=== PATIENT | female | born 1980 | race African-American/Black ===

== ENCOUNTER 2016-07-16 14:18 | Emergency (ER) | payer MEDICAID ==
[~2016-07-16] VITALS: Ht 154.9 cm; Wt 50.0 kg
[~2016-07-16 14:18] MED LIST: PENI500T PO; TRAM50 PO
[2016-07-16 14:20] VITALS: BP 109/97; PULSE 95; RESP 12; TEMP 98.6; O2SAT 97
[2016-07-16] MEDS ORDERED: KETOROLAC TROMETHAMINE 30 MG/ML (IVP) VIAL IVP ONE (15:00)
[2016-07-16] MEDS ORDERED: SODIUM CHLOR 0.9% 1000 ML INJ 1,000 ML IV SCH (15:00)
[2016-07-16] MEDS ORDERED: SODIUM CHLORIDE 0.9% FLUSH 5 ML FLUSH IVF PRN (15:00)
--- NOTE | 2016-07-16 15:08 | PD ---
HPI Chief Complaint: Oral / Dental Pain or Problem Time Seen by Provider: 14:49 Travel History International Travel<30 days: No Contact w/Intl Traveler<30days: No Traveled to known affect area: No History of Present Illness HPI The patient is a 35-year-old Kristina female who presents to the emergency department for dental pain and abdominal pain. The patient notes a one-day history of right dental swelling and discomfort located in the right lower aspect of the mouth. She does note mild swelling and sensitivity over the affected area with previous infections. The patient states she is unable to see her dentist until next week. The patient also complains of right sided abdominal pain has been intermittent for the last week. The pain is located in the right lower aspect of her abdomen, worse after drinking "soda", and alleviating on its own. The patient denies any nausea, vomiting, diarrhea, or anorexia. The patient does have a history of previous sections, but denies any history of previous gallstones or pancreatitis. The patient denies any dysuria, frequency, or urgency. The patient's last menstrual cycle was June 20, 2016. The patient denies any unusual vaginal discharge, does note normal, thin white vaginal discharge without itching or smell. PFSH Past Medical History Medical History: Denies Significant Hx Diabetes: No Immune Disorder: No ?: Not : 3 Para: 3 Past Surgical History Section: Yes (x2) Social History Alcohol Use: No Tobacco Use: Yes Substance Use: No Allergies-Medications (Allergen,Severity, Reaction): Coded Allergies: No Known Allergies (Verified , 07/16/16) Reported Meds & Prescriptions Reported Meds & Active Scripts Active Pen Vk (Penicillin V Potassium) 500 Mg Tab 500 Mg PO QID Ultram (Tramadol HCl) 50 Mg Tab 50 Mg PO Q6H PRN FOR PAIN Review of Systems Except as stated in HPI: all other systems reviewed are Neg General / Constitutional: No: Fever HENT: Positive: Dental Difficulties Cardiovascular: No: Chest Pain or Discomfort Respiratory: No: Shortness of Breath Gastrointestinal: No: Nausea, Vomiting, Abdominal Pain Genitourinary: Positive: Discharge (normal thin white vaginal discharge per patient's report), No: Urgency, Frequency, Dysuria, Hematuria, Vaginal Bleeding Skin: No Rash Physical Exam Narrative GENERAL: Awake, alert, pleasant 35-year-old female who appears her stated age and is in no acute respiratory distress. SKIN: Warm and dry. HEAD: Atraumatic. Normocephalic. EYES: Pupils equal and round. No scleral icterus. No injection or drainage. ENT: No nasal bleeding or discharge. Poor dentition with multiple missing teeth. Mild swelling along the lateral aspect of the right lower gumline. NECK: Trachea midline. No JVD. CARDIOVASCULAR: Regular rate and rhythm. No murmur appreciated. RESPIRATORY: No accessory muscle use. Clear to auscultation. Breath sounds equal bilaterally. GASTROINTESTINAL: Abdomen soft, non-tender, nondistended. Negative Mo's. Negative McBurney's. No rebound tenderness, guarding, or rigidity. MUSCULOSKELETAL: No obvious deformities. No clubbing. No cyanosis. No edema. NEUROLOGICAL: Awake and alert. No obvious cranial nerve deficits. Motor grossly within normal limits. Normal speech. PSYCHIATRIC: Appropriate mood and affect; insight and judgment normal. Data Data Last Documented VS Vital Signs Date Time Temp Pulse Resp B/P Pulse Ox O2 Delivery O2 Flow Rate FiO2 07/16/16 15:21 100 Room Air 07/16/16 14:54 20 07/16/16 14:20 98.6 95 109/97 Orders Complete Blood Count With Diff (07/16/16 15:00) Comprehensive Metabolic Panel (07/16/16 15:00) Lipase (07/16/16 15:00) Urinalysis - C+S If Indicated (07/16/16 15:00) Iv Access Insert/Monitor (07/16/16 15:00) Ecg Monitoring (07/16/16 15:00) Oximetry (07/16/16 15:00) Sodium Chlor 0.9% 1000 Ml Inj (Ns 1000 M (07/16/16 15:00) Sodium Chloride 0.9% Flush (Ns Flush) (07/16/16 15:00) Ketorolac Inj (Toradol Inj) (07/16/16 15:00) Ed Urine Pregnancytest Poc (07/16/16 15:00) Labs Laboratory Tests Test 07/16/16 15:15 White Blood Count 7.8 TH/MM3 Red Blood Count 3.83 MIL/MM3 Hemoglobin 10.7 GM/DL Hematocrit 31.8 % Mean Corpuscular Volume 83.2 FL Mean Corpuscular Hemoglobin 28.0 PG Mean Corpuscular Hemoglobin 33.6 % Concent Red Cell Distribution Width 16.3 % Platelet Count 247 TH/MM3 Mean Platelet Volume 7.4 FL Neutrophils (%) (Auto) 54.0 % Lymphocytes (%) (Auto) 31.1 % Monocytes (%) (Auto) 11.3 % Eosinophils (%) (Auto) 2.8 % Basophils (%) (Auto) 0.8 % Neutrophils # (Auto) 4.2 TH/MM3 Lymphocytes # (Auto) 2.4 TH/MM3 Monocytes # (Auto) 0.9 TH/MM3 Eosinophils # (Auto) 0.2 TH/MM3 Basophils # (Auto) 0.1 TH/MM3 CBC Comment DIFF FINAL Differential Comment Urine Color YELLOW Urine Turbidity HAZY Urine pH 6.5 Urine Specific [place] 1.030 Urine Protein TRACE mg/dL Urine Glucose (UA) NEG mg/dL Urine Ketones NEG mg/dL Urine Occult Blood NEG Urine Nitrite NEG Urine Bilirubin NEG Urine Urobilinogen 2.0 MG/DL Urine Leukocyte Esterase MOD Urine RBC 1 /hpf Urine WBC 3 /hpf Urine Squamous Epithelial 23 /hpf Cells Urine Hyaline Casts 1 /lpf Urine Mucus MANY /lpf Microscopic Urinalysis Comment CULT NOT INDICATED Sodium Level 140 MEQ/L Potassium Level 3.5 MEQ/L Chloride Level 108 MEQ/L Carbon Dioxide Level 25.8 MEQ/L Anion Gap 6 MEQ/L Blood Urea Nitrogen 11 MG/DL Creatinine 0.83 MG/DL Estimat Glomerular Filtration 94 ML/MIN Rate Random Glucose 87 MG/DL Calcium Level 8.4 MG/DL Total Bilirubin 0.4 MG/DL Aspartate Amino Transf 8 U/L (AST/SGOT) Alanine Aminotransferase 13 U/L (ALT/SGPT) Alkaline Phosphatase 62 U/L Total Protein 7.6 GM/DL Albumin 3.9 GM/DL Lipase 509 U/L MDM Medical Decision Making Medical Screen Exam Complete: Yes Emergency Medical Condition: Yes Medical Record Reviewed: Yes Interpretation(s) Laboratory Tests Test 07/16/16 15:15 White Blood Count 7.8 TH/MM3 Red Blood Count 3.83 MIL/MM3 Hemoglobin 10.7 GM/DL Hematocrit 31.8 % Mean Corpuscular Volume 83.2 FL Mean Corpuscular Hemoglobin 28.0 PG Mean Corpuscular Hemoglobin 33.6 % Concent Red Cell Distribution Width 16.3 % Platelet Count 247 TH/MM3 Mean Platelet Volume 7.4 FL Neutrophils (%) (Auto) 54.0 % Lymphocytes (%) (Auto) 31.1 % Monocytes (%) (Auto) 11.3 % Eosinophils (%) (Auto) 2.8 % Basophils (%) (Auto) 0.8 % Neutrophils # (Auto) 4.2 TH/MM3 Lymphocytes # (Auto) 2.4 TH/MM3 Monocytes # (Auto) 0.9 TH/MM3 Eosinophils # (Auto) 0.2 TH/MM3 Basophils # (Auto) 0.1 TH/MM3 CBC Comment DIFF FINAL Differential Comment Urine Color YELLOW Urine Turbidity HAZY Urine pH 6.5 Urine Specific [place] 1.030 Urine Protein TRACE mg/dL Urine Glucose (UA) NEG mg/dL Urine Ketones NEG mg/dL Urine Occult Blood NEG Urine Nitrite NEG Urine Bilirubin NEG Urine Urobilinogen 2.0 MG/DL Urine Leukocyte Esterase MOD Urine RBC 1 /hpf Urine WBC 3 /hpf Urine Squamous Epithelial 23 /hpf Cells Urine Hyaline Casts 1 /lpf Urine Mucus MANY /lpf Microscopic Urinalysis Comment CULT NOT INDICATED Sodium Level 140 MEQ/L Potassium Level 3.5 MEQ/L Chloride Level 108 MEQ/L Carbon Dioxide Level 25.8 MEQ/L Anion Gap 6 MEQ/L Blood Urea Nitrogen 11 MG/DL Creatinine 0.83 MG/DL Estimat Glomerular Filtration 94 ML/MIN Rate Random Glucose 87 MG/DL Calcium Level 8.4 MG/DL Total Bilirubin 0.4 MG/DL Aspartate Amino Transf 8 U/L (AST/SGOT) Alanine Aminotransferase 13 U/L (ALT/SGPT) Alkaline Phosphatase 62 U/L Total Protein 7.6 GM/DL Albumin 3.9 GM/DL Lipase 509 U/L Differential Diagnosis Differential diagnosis includes cholecystitis, biliary colic, appendicitis, PID , cervicitis, UTI, dental abscess, gingivitis, odontalgia. Narrative Course IV was established, labs were drawn and sent, and the patient was placed on cardiac telemetry monitoring and continuous pulse oximetry monitoring. The patient was administered Toradol 30 mg intravenously and 1 L of IV fluids. The patient's lipase is mildly elevated at 509, however, LFTs are unremarkable. I doubt choledocholithiasis. The patient may have mild pancreatitis, however, is tolerating by mouth without difficulty. The patient discharged home on pen VK for the dental infection and [place] as needed for the abdominal pain that may be related to pancreatitis. Patient is advised to follow-up with her primary physician and/or gastroenterology as well as dentistry on an outpatient basis. Diagnosis Primary Impression: Dental abscess Additional Impressions: Pancreatitis Qualified Code: K85.90 - Acute pancreatitis, unspecified complication status, unspecified pancreatitis type Abdominal pain Qualified Code: R10.9 - Abdominal pain, unspecified location Patient Instructions: General Instructions Additional Instructions: Medications as directed. Follow-up with your primary physician. Return if symptoms worsen or progress. Med/Other Pt SpecificInfo: Prescription(s) given Scripts Hydrocodone-Acetaminophen ([place])5-325 mg Tab1 Tab PO Q6H PRN (PAIN) #20 TAB Ref 0 Prov:Estuardo Leary MD 07/16/16 Penicillin V Potassium (Penicillin Vk)250 Mg The406 Mg PO Q6H 10 Days Ref 0 Prov:Estuardo Leary MD 07/16/16 Disposition: 01 DISCHARGE HOME Condition: Stable Estuardo Leary MD Jul 16, 2016 15:08
[2016-07-16 15:21] VITALS: O2SAT 100
[2016-07-16 15:36] LABS: AUTOMATED NEUTROPHIL # 4.2 TH/MM3 (1.8-7.7); BASOPHIL # 0.1 TH/MM3 (0-0.2); BASOPHIL % 0.8 % (0.0-2.0); EOSINOPHIL # 0.2 TH/MM3 (0-0.4); EOSINOPHIL % 2.8 % (0.0-4.0); HEMATOCRIT 31.8 % (35.0-46.0); HEMO FLAGS DIFF FINAL; LYMPH % 31.1 % (9.0-44.0); LYMPHOCYTE # 2.4 TH/MM3 (1.0-4.8); MEAN CELL VOLUME 83.2 FL (80.0-100.0); MEAN CORPUSCULAR HGB CONC 33.6 % (32.0-36.0); MONO % 11.3 % (0.0-8.0); PLATELET COUNT 247 TH/MM3 (150-450); RED BLOOD COUNT 3.83 MIL/MM3 (4.00-5.30); RED CELL DISTRIBUTION WIDTH 16.3 % (11.6-17.2); WHITE BLOOD COUNT 7.8 TH/MM3 (4.0-11.0)
[2016-07-16 15:48] LABS: BLOOD, URINE NEG (NEG); COMMENT (UR) CULT NOT INDICATED; CULTURE IF INDICATED CULT NOT INDICATED; GLUCOSE,URINE NEG (NEG); HYALINE CAST, URINE 1 /lpf (RARE); KETONE, URINE NEG (NEG); MUCUS URINE MANY /lpf (OCC); NITRITE,URINE NEG (NEG); PH, URINE 6.5 (5.0-8.5); SQUAMOUS EPITHELIAL CELL URINE 23 /hpf (0-5); URINE COLOR YELLOW (YELLW/STRAW)
[2016-07-16 16:00] LABS: ANION GAP 6 MEQ/L (5-15); AST (GOT) 8 U/L (15-37); BICARBONATE 25.8 MEQ/L (21.0-32.0); BLOOD UREA NITROGEN 11 MG/DL (7-18); CHLORIDE 108 MEQ/L (98-107); GLOMERULAR FILTRATION RATE 94 ML/MIN (>89); POTASSIUM 3.5 MEQ/L (3.5-5.1); SODIUM (NA) 140 MEQ/L (136-145)
[2016-07-16 16:04] LABS: ALKALINE PHOSPHATASE 62 U/L (45-117); ALT (GPT) 13 U/L (10-53); TOTAL BILIRUBIN ADULT 0.4 MG/DL (0.2-1.0)
[2016-07-16] MEDS ORDERED: NORC5TAB PO (16:18)
[2016-07-16] MEDS ORDERED: PENI250T59 PO (16:18)
[2016-07-16 17:39] VITALS: BP 109/64
== END 2016-07-16 17:40 | disposition home or self-care (01) ==
LOC: NEPA 14:18
DX: K85.90 Acute pancreatitis without necrosis or infection, unspecified (principal); K04.7 Periapical abscess without sinus
CPT/HCPCS: 80053; 81001; 83690; 84703; 85025; 96374; 99284; J1885; J7030